=== PATIENT | female | born 2000 | race Two or more races ===

== ENCOUNTER 2024-04-23 13:29 | Emergency (ER) | payer MEDICAID, OTHER ==
[~2024-04-23] VITALS: Ht 157.5 cm; Wt 66.4 kg
--- NOTE | 2024-04-23 14:52 | DVH ---
LEFT KNEE RADIOGRAPHS CLINICAL HISTORY: Knee pain TECHNIQUE: 3 views of the left knee. Comparison: None FINDINGS/IMPRESSION: There is no evidence of fracture or dislocation. The alignment of the left knee is appropriate. Joint spaces are maintained. There is no significant joint effusion.The surrounding soft tissues appear un remarkable. HS:Y
[2024-04-23 15:12] VITALS: BP 122/68; PULSE 82; RESP 16; TEMP 98.7; O2SAT 97
[2024-04-23] MEDS ORDERED: IBUP-1455 PO (15:17)
--- NOTE | 2024-04-23 15:17 | ED.PDOC ---
Musculoskeletal HPI Comments L knee pain and locking sensation x 2 weeks No trauma Symptoms come and go Taking no medicaiton Has no knee issues Chief Complaint: Lower Extremity Time Seen by MD: 14:33 Reviewed Notes: Nurses Notes, Medications, Allergies Allergies: Coded Allergies: Amoxicillin (Verified Allergy, Unknown, 04/23/24) Penicillins (Verified Allergy, Unknown, 04/23/24) Home Meds Active Scripts Ibuprofen Micronized (Ibuprofen) 800 Mg Tab, 800 MG PO TID for 10 Days, #30 TAB 0 Refills Prov:WILLIE GAR DAMAGE PREVENTION COORDINATOR 04/23/24 Information Source: Patient Mode of Arrival: Ambulatory X-Ray, Labs, Meds, VS Vital Signs Date Time Temp Pulse Resp B/P (MAP) Pulse Ox O2 Delivery O2 Flow Rate FiO2 04/23/24 15:12 98.7 82 16 122/68 (86) 97 98.7 04/23/24 15:12 82 16 97 Room Air 04/23/24 14:00 98.4 82 16 122/68 (86) 97 Time of 1ST Reevaluation: 15:16 Reevaluation 1ST: Improved Patient Education/Counseling: Diagnosis, Treatment Family Education/Counseling: Diagnosis, Treatment Departure 1 Departure Time of Disposition: 15:16 Impression: Primary Impression: Internal derangement of knee Qualified Codes: M23.92 - Unspecified internal derangement of left knee Disposition: 01 HOME / SELF CARE / HOMELESS Condition: Stable e-Prescriptions Ibuprofen Micronized (Ibuprofen) 800 Mg Tab 800 MG PO TID for 10 Days, #30 TAB 0 Refills Prov: WILLIE GAR NP 04/23/24 Discharged With: Self Critical Care Note Critical Care Time?: No Stability Stability form required: No Heart Score Heart Score: Heart Score Response (Comments) Value History N/A 0 EKG N/A 0 Age N/A 0 Risk Factors N/A 0 Troponin N/A 0 Total 0 WILLIE GAR DAMAGE PREVENTION COORDINATOR Apr 23, 2024 15:17
== END 2024-04-23 15:19 | disposition home or self-care (01) ==
LOC: ER 13:29
DX: M23.92 Unspecified internal derangement of left knee (principal); Z88.0 Allergy status to penicillin; Z88.8 Allergy status to other drugs, medicaments and biological substances
CPT/HCPCS: 73562